=== PATIENT | male | born 2000 | race Two or more races ===

== ENCOUNTER 2021-07-25 20:19 | Emergency (ER) | payer SELFPAY ==
[~2021-07-25] VITALS: Ht 162.6 cm; Wt 77.1 kg
[2021-07-25 20:30] VITALS: BP 100/52
== END 2021-07-26 00:50 ==
LOC: ER 20:19
DX: F10.129 Alcohol abuse with intoxication, unspecified (principal); F17.210 Nicotine dependence, cigarettes, uncomplicated; Y90.9 Presence of alcohol in blood, level not specified